=== PATIENT | female | born 1955 | race Caucasian/White ===

== ENCOUNTER 2018-10-08 11:55 | Inpatient (IN) ==
--- NOTE | 2018-10-08 13:05 | Emergency Department Note ---
Disposition Clinical Impression: Altered mental status, unspecified Qualifiers: Altered mental status type: unspecified Qualified Code(s): R41.82 - Altered mental status, unspecified UTI (urinary tract infection) Qualifiers: Urinary tract infection type: site unspecified Hematuria presence: without hematuria Qualified Code(s): N39.0 - Urinary tract infection, site not specified Disposition: Admitted As Inpatient Condition: Fair Time of Disposition: 14:54 General Adult HPI - General Chief complaint: ED Seizure Stated complaint: AMS Time Seen by Provider: 10/08/18 12:00 Source: EMS, other (home health technology services manager) Mode of arrival: EMS Limitations: altered mental status Nursing Notes Reviewed: Yes Vital Signs Reviewed: Yes - History of Present Illness HPI Narrative: 63-year-old female history of M RDD presents to the emergency department via EMS for altered mental status. She was at adult day [facility] when witnesses believes she may have experienced a seizure as she stared out into space and then had rhythmic shaking. She has a history of this 20 years ago but is not currently on any antiepileptic medication. Afterwards she was confused and nonverbal. She continues to be nonverbal here. The technology services manager of where she lives the past 15 years is present at the room and states this is not her normal self. States that earlier today around 9 o'clock when she got on the bus to the old adult day care she was sweeter than usual. She was at [facility] around 1115 with these episodes occurred. Witnesses state this may lasted 5 minutes or so. At this time patient cannot verbalize any complaints other than headache. Workup will be initiated for possible syncope versus seizure. Pain Scale: 0 - Related Data Home Medications Medication Instructions Recorded Confirmed Aspirin 81 mg PO HS 03/23/16 10/08/18 Calcium Carbonate/Vitamin D3 1 tab PO BID 03/23/16 10/08/18 [Calcium 600-Vit D3 400 Tablet] Chlorophyllin/Cochran [Chlorophyll 100 mg PO BID 03/23/16 10/08/18 20 mg Tablet] Glucosamine Sulfate Dipot Chlr 1,000 mg PO BID 03/23/16 10/08/18 [Glucosamine] Rudyard-3/Dha/Epa/Fish Oil [Fish Oil 1 cap PO DAILY 03/23/16 10/08/18 1,000 mg Softgel] Omeprazole [PriLOSEC] 40 mg PO DAILY 03/23/16 10/08/18 Simvastatin [Zocor] 20 mg PO HS 03/23/16 10/08/18 Torsemide 10 mg PO DAILY 03/23/16 10/08/18 Citalopram Hydrobromide 10 mg PO HS 10/08/18 10/08/18 [Citalopram HBr] Gabapentin [Neurontin] 900 mg PO HS 10/08/18 10/08/18 Menthol/Zinc Oxide [Calmoseptine 1 appl TP HS 10/08/18 10/08/18 Ointment Packet] Wheat Dextrin [Benefiber] 10 ml PO DAILY 10/08/18 10/08/18 Allergies Allergy/AdvReac Type Severity Reaction Status Date / Time levetiracetam [From [facility]] Allergy See Verified 10/08/18 18:25 Comments Limitations: ROS unobtainable due to patients medical condition (Patient is nonverbal) Past Medical History - Past Medical History Source: old records reviewed, obtained from family, nursing notes reviewed Medical history: Reports: other Surgical history: Reports: other Psychiatric history: Reports: other - Social History Smoking Status: Never smoker Smokeless Tobacco Status: No Alcohol use: Reports: none Drug use: Reports: none Physical Exam - General Limitations: altered mental status General appearance: alert, in no apparent distress - Head Head exam: atraumatic, normocephalic, normal inspection - Eye Eye exam: Present: normal appearance, PERRL, EOMI - ENT ENT exam: normal exam, normal oropharynx, mucous membranes moist - Neck Neck exam: Present: normal inspection, full ROM, trachea midline - Chest Chest inspection: Present: normal inspection, symmetric chest wall rise - Respiratory Respiratory exam: Present: normal lung sounds bilaterally. Absent: respiratory distress, wheezes - Cardiovascular Cardiovascular exam: Present: regular rate, normal rhythm, normal heart sounds - Expanded Cardiovascular Exam Peripheral pulses: 2+: radial (R), radial (L) - Abdominal Exam Abdominal exam: Present: soft (Obese), Non-Tender, normal bowel sounds. Absent: tenderness, distention, guarding, rebound, rigidity - Extremities Exam Extremities exam: Present: normal inspection. Absent: tenderness, pedal edema - Back Exam Back exam: Present: normal inspection, full ROM. Absent: tenderness - Neurological Exam Neurological exam: Present: alert - Psychiatric Psychiatric exam: Present: normal affect, normal mood - Skin Skin exam: Present: warm, dry, intact, normal color. Absent: rash, cyanosis, diaphoresis Course Course Narrative: Patient presents for altered mental status with concern for first-time seizure. She is nonverbal which is not her normal self. Will obtain CT scan and further evaluation. - Reevaluation(s) Reevaluation #1: After the patient returns from CT scan she is now more verbal and acting closer to herself. This was witnessed by myself nursing staff as well as her electric range assembler. Awaiting further evaluation and laboratory workup. Time: 13:06 Reevaluation #2: [place] for labs shows a clear urinary tract infection. Patient is back to baseline she is laughing interactive and appearing her normal self. At this time unclear of etiology of today's events. Concern for possible syncope versus seizure. Now that she is at baseline she does war admission for observation and further evaluation. Patient as well as caregiver is agreeable to this plan. - Consultations Consultation #1: Spoke with on-call hospitalist Dr. June, [place] to admit for AMS and UTI. No further orders at this time Vital Signs Temperature 97 F L 10/08/18 11:58 Pulse Rate 62 10/08/18 11:58 Respiratory Rate 14 10/08/18 11:58 Blood Pressure 127/98 10/08/18 11:58 O2 Sat by Pulse Oximetry 97 10/08/18 11:58 Temperature 97 F L 10/08/18 11:58 Pulse Rate 62 10/08/18 11:58 Respiratory Rate 14 10/08/18 11:58 Blood Pressure 126/110 10/08/18 13:24 O2 Sat by Pulse Oximetry 97 10/08/18 11:58 Oxygen Delivery Oxygen Delivery Room Air Medical Decision Making - MDM Narrative Medical decision making narrative: Patient was discussed with my attending physician who agrees with ED management and final disposition. They independently evaluated the patient. Please refer to their attestation to this encounter for additional information. This note was generated by [employer] voice recognition software and as a result grammatical or spelling errors may occur using this program. - Medical Records Medical records reviewed: Yes I reviewed the patient's medical records. - Lab Data Lab results reviewed: Yes I reviewed the patient's lab results. Result diagrams: 10/08/18 12:53 10/08/18 12:53 Lab Results 10/08/18 10/08/18 10/08/18 Range/Units 12:53 12:53 12:53 WBC 5.3 (4.3-11.1) K/mcL RBC 4.37 (3.82-4.97) M/mcL Hgb 14.2 (11.5-15.4) g/dL Hct 41.9 (35.3-44.9) % MCV 95.9 (83.0-100.0) fL MCH 32.5 (28.0-33.3) pg MCHC 33.9 (31.6-35.5) g/dL RDW 12.4 (11.5-14.5) % Plt Count 248 (140-400) K/mcL MPV 9.9 (9.4-12.4) fL Immature Gran % 0.2 (0-4) % Seg Neutrophils % 43.3 % Lymphocytes % 39.4 % Monocytes % 13.5 % Eosinophils % 2.5 % Basophils % 1.1 % Neutrophils # 2.3 (1.6-8.9) K/mcL Lymphocytes # 2.1 (0.6-4.6) K/mcL Monocytes # 0.7 (0.0-1.3) K/mcL Eosinophils # 0.1 (0.0-0.6) K/mcL Basophils # 0.1 (0.0-0.2) K/mcL APTT 34.2 (26.0-36.0) Seconds VBG pH (7.32-7.42) pH Units VBG pCO2 (41-51) mmHg VBG pO2 (25-50) mmHg VBG HCO3 (21-27) mEq/L Sodium 138 (136-145) mEq/L Potassium 4.1 (3.5-5.1) mEq/L Chloride 105 (98-107) mEq/L Carbon Dioxide 28 (23-29) mEq/L BUN 15 (8-23) mg/dL Creatinine 0.64 (0.60-1.20) mg/dL Est GFR ( Amer) > 60 (> 60) Est GFR (Non-Af Amer) > 60 (> 60) BUN/Creatinine Ratio 23 (6-26) Glucose 79 (70-105) mg/dL Calculated Osmolality 286 (280-300) Lactic Acid (0.5-2.2) mmol/L Calcium 9.4 (8.6-10.3) mg/dL Magnesium 2.2 (1.6-2.6) mg/dL Total Bilirubin 0.4 (0.3-1.0) mg/dL Direct Bilirubin 0.1 (0.0-0.2) mg/dL Indirect Bilirubin 0.3 (0.0-1.2) mg/dL AST 51 H (13-39) Units/L ALT 38 (7-52) Units/L Alkaline Phosphatase 77 (34-104) Units/L Ammonia (16-53) mcmol/L Troponin I (< 0.04) ng/mL Serum Total Protein 7.7 (6.4-8.9) g/dL Albumin 3.7 (3.5-5.7) g/dL Globulin 4.0 H (2.4-3.5) g/dL Albumin/Globulin Ratio 0.9 L (1.1-2.2) Lipase 28 (11-82) Units/L Urine Color (Yellow) Urine Clarity (Clear) Urine pH (5.0-8.0) pH Units Ur Specific [place] (1.010-1.025) Urine Protein (Neg-Trace) mg/dL Urine Glucose (UA) (Normal) mg/dL Urine Ketones (Negative) mg/dL Urine Blood (Negative) Urine Nitrite (Negative) Urine Bilirubin (Negative) Urine Urobilinogen (Normal) mg/dL Ur Leukocyte Esterase (Negative) Urine Microscopic RBC (0-3) per hpf Urine Microscopic WBC (0-3) per hpf Ur Squamous Epith Cells (None-Few) per lpf Urine Bacteria (None-Few) per hpf Hyaline Casts (None-Few) per lpf Ur Culture Indicated? (NO) 10/08/18 10/08/18 10/08/18 Range/Units 12:53 12:53 12:53 WBC (4.3-11.1) K/mcL RBC (3.82-4.97) M/mcL Hgb (11.5-15.4) g/dL Hct (35.3-44.9) % MCV (83.0-100.0) fL MCH (28.0-33.3) pg MCHC (31.6-35.5) g/dL RDW (11.5-14.5) % Plt Count (140-400) K/mcL MPV (9.4-12.4) fL Immature Gran % (0-4) % Seg Neutrophils % % Lymphocytes % % Monocytes % % Eosinophils % % Basophils % % Neutrophils # (1.6-8.9) K/mcL Lymphocytes # (0.6-4.6) K/mcL Monocytes # (0.0-1.3) K/mcL Eosinophils # (0.0-0.6) K/mcL Basophils # (0.0-0.2) K/mcL APTT (26.0-36.0) Seconds VBG pH (7.32-7.42) pH Units VBG pCO2 (41-51) mmHg VBG pO2 (25-50) mmHg VBG HCO3 (21-27) mEq/L Sodium (136-145) mEq/L Potassium (3.5-5.1) mEq/L Chloride (98-107) mEq/L Carbon Dioxide (23-29) mEq/L BUN (8-23) mg/dL Creatinine (0.60-1.20) mg/dL Est GFR ( Amer) (> 60) Est GFR (Non-Af Amer) (> 60) BUN/Creatinine Ratio (6-26) Glucose (70-105) mg/dL Calculated Osmolality (280-300) Lactic Acid 1.3 (0.5-2.2) mmol/L Calcium (8.6-10.3) mg/dL Magnesium (1.6-2.6) mg/dL Total Bilirubin (0.3-1.0) mg/dL Direct Bilirubin (0.0-0.2) mg/dL Indirect Bilirubin (0.0-1.2) mg/dL AST (13-39) Units/L ALT (7-52) Units/L Alkaline Phosphatase (34-104) Units/L Ammonia 43 (16-53) mcmol/L Troponin I < 0.03 (< 0.04) ng/mL Serum Total Protein (6.4-8.9) g/dL Albumin (3.5-5.7) g/dL Globulin (2.4-3.5) g/dL Albumin/Globulin Ratio (1.1-2.2) Lipase (11-82) Units/L Urine Color (Yellow) Urine Clarity (Clear) Urine pH (5.0-8.0) pH Units Ur Specific [place] (1.010-1.025) Urine Protein (Neg-Trace) mg/dL Urine Glucose (UA) (Normal) mg/dL Urine Ketones (Negative) mg/dL Urine Blood (Negative) Urine Nitrite (Negative) Urine Bilirubin (Negative) Urine Urobilinogen (Normal) mg/dL Ur Leukocyte Esterase (Negative) Urine Microscopic RBC (0-3) per hpf Urine Microscopic WBC (0-3) per hpf Ur Squamous Epith Cells (None-Few) per lpf Urine Bacteria (None-Few) per hpf Hyaline Casts (None-Few) per lpf Ur Culture Indicated? (NO) 10/08/18 10/08/18 Range/Units 13:10 13:44 WBC (4.3-11.1) K/mcL RBC (3.82-4.97) M/mcL Hgb (11.5-15.4) g/dL Hct (35.3-44.9) % MCV (83.0-100.0) fL MCH (28.0-33.3) pg MCHC (31.6-35.5) g/dL RDW (11.5-14.5) % Plt Count (140-400) K/mcL MPV (9.4-12.4) fL Immature Gran % (0-4) % Seg Neutrophils % % Lymphocytes % % Monocytes % % Eosinophils % % Basophils % % Neutrophils # (1.6-8.9) K/mcL Lymphocytes # (0.6-4.6) K/mcL Monocytes # (0.0-1.3) K/mcL Eosinophils # (0.0-0.6) K/mcL Basophils # (0.0-0.2) K/mcL APTT (26.0-36.0) Seconds VBG pH 7.38 (7.32-7.42) pH Units VBG pCO2 42 (41-51) mmHg VBG pO2 109 H (25-50) mmHg VBG HCO3 25 (21-27) mEq/L Sodium (136-145) mEq/L Potassium (3.5-5.1) mEq/L Chloride (98-107) mEq/L Carbon Dioxide (23-29) mEq/L BUN (8-23) mg/dL Creatinine (0.60-1.20) mg/dL Est GFR ( Amer) (> 60) Est GFR (Non-Af Amer) (> 60) BUN/Creatinine Ratio (6-26) Glucose (70-105) mg/dL Calculated Osmolality (280-300) Lactic Acid (0.5-2.2) mmol/L Calcium (8.6-10.3) mg/dL Magnesium (1.6-2.6) mg/dL Total Bilirubin (0.3-1.0) mg/dL Direct Bilirubin (0.0-0.2) mg/dL Indirect Bilirubin (0.0-1.2) mg/dL AST (13-39) Units/L ALT (7-52) Units/L Alkaline Phosphatase (34-104) Units/L Ammonia (16-53) mcmol/L Troponin I (< 0.04) ng/mL Serum Total Protein (6.4-8.9) g/dL Albumin (3.5-5.7) g/dL Globulin (2.4-3.5) g/dL Albumin/Globulin Ratio (1.1-2.2) Lipase (11-82) Units/L Urine Color Yellow (Yellow) Urine Clarity Cloudy A (Clear) Urine pH 5.5 (5.0-8.0) pH Units Ur Specific [place] 1.020 (1.010-1.025) Urine Protein Negative (Neg-Trace) mg/dL Urine Glucose (UA) Normal (Normal) mg/dL Urine Ketones Negative (Negative) mg/dL Urine Blood Negative (Negative) Urine Nitrite Positive A (Negative) Urine Bilirubin Negative (Negative) Urine Urobilinogen Normal (Normal) mg/dL Ur Leukocyte Esterase Moderate H (Negative) Urine Microscopic RBC 0-3 (0-3) per hpf Urine Microscopic WBC 50-100 H (0-3) per hpf Ur Squamous Epith Cells Few (None-Few) per lpf Urine Bacteria Many H (None-Few) per hpf Hyaline Casts Few (None-Few) per lpf Ur Culture Indicated? YES A (NO) - Radiology Data Radiology results reviewed: Yes I reviewed the patient's radiology results. Chest X-Ray 10/08/18 12:09 IMPRESSION: 1. Technically limited exam because of expiratory phase of respiration. 2. Probable small right pleural effusion. Focal pneumonitis is a consideration as well. 3. Predominantly bilateral parahilar vascular crowding underaeration. Follow-up full inspiration PA and lateral chest may be useful for better characterization of pulmonary findings. D/ / Hector Rodriguez / Hector Rodriguez Interpreting Provider: Hector Rodriguez Head CT 10/08/18 12:09 IMPRESSION: No acute intracranial abnormality. D/ / Davis Calderon MD / Davis Calderon MD Interpreting Provider: Davis Calderon MD Knee X-Ray 10/08/18 12:40 IMPRESSION: Moderate tricompartmental degenerative changes with a 17 mm loose body anteriorly. No acute osseous abnormality. D/ / 10/08/2018 13:32:34 Pamela Boggs MD / rahat Interpreting Provider: Pamela Boggs MD Attestation Statement - Attestation Attestation: I have seen this patient with the resident physician, I have personally evaluated this patient. I had reviewed the chart and document dictation by the resident physician and aM in agreement with the information documented by the resident physician. Please see documentation by the resident physician for complete chart including past medical history, family medical history, review of systems, current history and physical and laboratory and imaging studies. I was present for all procedures, provided direct supervision for all procedu res, was present for the entirety of all procedures and provided direct guidance during the procedures. Please see documentation by the resident physician for any procedures performed. I have reviewed all interpretations of EKGs, and reviewed all EKGs performed on patient's as well. I have also reviewed reports of imaging as provided by radiology.
[2018-10-08 13:24] LABS: Basophils # 0.1 K/mcL (0.0-0.2); Basophils % 1.1 %; Eosinophils # 0.1 K/mcL (0.0-0.6); Eosinophils % 2.5 %; Hematocrit 41.9 % (35.3-44.9); Hemoglobin 14.2 g/dL (11.5-15.4); Immature Granulocytes % 0.2 % (0-4); Lymphocytes # 2.1 K/mcL (0.6-4.6); Lymphocytes % 39.4 %; Mean Corpuscular HGB Conc 33.9 g/dL (31.6-35.5); Mean Corpuscular Hemoglobin 32.5 pg (28.0-33.3); Mean Corpuscular Volume 95.9 fL (83.0-100.0); Mean Platelet Volume 9.9 fL (9.4-12.4); Monocytes # 0.7 K/mcL (0.0-1.3); Monocytes % 13.5 %; Neutrophils # 2.3 K/mcL (1.6-8.9); Platelet Count 248 K/mcL (140-400); Red Blood Count 4.37 M/mcL (3.82-4.97); Red Cell Distribution Width 12.4 % (11.5-14.5); Segmented Neutrophils % 43.3 %; White Blood Count 5.3 K/mcL (4.3-11.1)
[2018-10-08 13:31] LABS: Bilirubin,Urine Negative (Negative); Blood,Urine Negative (Negative); Clarity,Urine Cloudy (Clear); Color,Urine Yellow (Yellow); Glucose,Urine (UA) Normal (Normal); Ketones,Urine Negative (Negative); Leukocyte Esterase,Urine Moderate (Negative); Nitrite,Urine Positive (Negative); PH,Urine 5.5 pH Units (5.0-8.0); Protein,Urine Negative (Neg-Trace); Urobilinogen,Urine Normal (Normal)
[2018-10-08 13:34] LABS: Bacteria,Urine Many per hpf (None-Few); Hyaline Casts,Urine Few per lpf (None-Few); RBC,Urine 0-3 per hpf (0-3); Squamous Epithelial Cell,Urine Few per lpf (None-Few); WBC,Urine 50-100 per hpf (0-3)
[2018-10-08 13:34] LABS: Alanine Aminotransferase 38 Units/L (7-52); Albumin 3.7 g/dL (3.5-5.7); Albumin/Globulin Ratio 0.9 (1.1-2.2); Alkaline Phosphatase 77 Units/L (34-104); Aspartate Amino Transferase 51 Units/L (13-39); BUN/Creatinine Ratio 23 (6-26); Bilirubin,Direct 0.1 mg/dL (0.0-0.2); Bilirubin,Indirect 0.3 mg/dL (0.0-1.2); Bilirubin,Total 0.4 mg/dL (0.3-1.0); Blood Urea Nitrogen 15 mg/dL (8-23); Calcium 9.4 mg/dL (8.6-10.3); Carbon Dioxide 28 mEq/L (23-29); Chloride 105 mEq/L (98-107); Glucose 79 mg/dL (70-105); Lipase 28 Units/L (11-82); Magnesium 2.2 mg/dL (1.6-2.6); Osmolality,Calculated 286 (280-300); Potassium 4.1 mEq/L (3.5-5.1); Sodium 138 mEq/L (136-145); Total Protein 7.7 g/dL (6.4-8.9); eGFR For African Americans > 60 (> 60); eGFR For Non-African Americans > 60 (> 60)
[2018-10-08 13:47] LABS: VBG HCO3 25 mEq/L (21-27); VBG PCO2 42 mmHg (41-51); VBG PH 7.38 pH Units (7.32-7.42); VBG PO2 109 mmHg (25-50)
[2018-10-08] MEDS ORDERED: cefTRIAXone 1,000 MG in 0.9 % Sodium Chloride Mini Bag 100 ML IVPB ONE (13:48)
--- NOTE | 2018-10-08 14:26 | Emergency Department Note ---
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) Mode of arrival: EMS Limitations: altered mental status - History of Present Illness Pain Scale: 0 - Related Data Home Medications Medication Instructions Recorded Confirmed Aspirin 81 mg PO DAILY 03/23/16 03/23/16 Calcium Carbonate/Vitamin D3 1 each PO BID 03/23/16 03/23/16 [Calcium 600-Vit D3 400 Tablet] Chlorophyllin/[place] [Chlorophyll 100 mg PO BID 03/23/16 03/23/16 20 mg Tablet] Gabapentin 900 mg PO DAILY 03/23/16 03/23/16 Glucosamine Sulfate Dipot Chlr 1,000 mg PO BID 03/23/16 03/23/16 [Glucosamine] [place]-3/Dha/Epa/Fish Oil [Fish Oil 1 each PO DAILY 03/23/16 03/23/16 1,000 mg Softgel] Omeprazole [PriLOSEC] 40 mg PO DAILY 03/23/16 03/23/16 Simvastatin [Zocor] 20 mg PO DAILY 03/23/16 03/23/16 Torsemide 10 mg PO DAILY 03/23/16 03/23/16 Previous Rx's Medication Instructions Recorded Azithromycin [Zithromax] 0 tab PO DAILY #6 tablet 11/02/16 HYDROcodone/Acet 5/325 mg [[place] 1 tab PO Q6H PRN #10 tab 04/21/17 5-325 mg] Allergies Allergy/AdvReac Type Severity Reaction Status Date / Time levetiracetam [From Keppra] Allergy See Verified 04/09/18 21:12 Comments Past Medical History - Past Medical History Medical history: Reports: other Surgical history: Reports: other Psychiatric history: Reports: other - Social History Smoking Status: Never smoker Smokeless Tobacco Status: No Alcohol use: Reports: none Drug use: Reports: none Physical Exam - General Limitations: altered mental status General appearance: alert, in no apparent distress Course Vital Signs Temperature 97 F L 10/08/18 11:58 Pulse Rate 62 10/08/18 11:58 Respiratory Rate 14 10/08/18 11:58 Blood Pressure 127/98 10/08/18 11:58 O2 Sat by Pulse Oximetry 97 10/08/18 11:58 Temperature 97 F L 10/08/18 11:58 Pulse Rate 62 10/08/18 11:58 Respiratory Rate 14 10/08/18 11:58 Blood Pressure 126/110 10/08/18 13:24 O2 Sat by Pulse Oximetry 97 10/08/18 11:58 Oxygen Delivery Oxygen Delivery Room Air Medical Decision Making - Lab Data Result diagrams: 10/08/18 12:53 10/08/18 12:53 Lab Results 10/08/18 10/08/18 10/08/18 Range/Units 12:53 12:53 12:53 WBC 5.3 (4.3-11.1) K/mcL RBC 4.37 (3.82-4.97) M/mcL Hgb 14.2 (11.5-15.4) g/dL Hct 41.9 (35.3-44.9) % MCV 95.9 (83.0-100.0) fL MCH 32.5 (28.0-33.3) pg MCHC 33.9 (31.6-35.5) g/dL RDW 12.4 (11.5-14.5) % Plt Count 248 (140-400) K/mcL MPV 9.9 (9.4-12.4) fL Immature Gran % 0.2 (0-4) % Seg Neutrophils % 43.3 % Lymphocytes % 39.4 % Monocytes % 13.5 % Eosinophils % 2.5 % Basophils % 1.1 % Neutrophils # 2.3 (1.6-8.9) K/mcL Lymphocytes # 2.1 (0.6-4.6) K/mcL Monocytes # 0.7 (0.0-1.3) K/mcL Eosinophils # 0.1 (0.0-0.6) K/mcL Basophils # 0.1 (0.0-0.2) K/mcL APTT 34.2 (26.0-36.0) Seconds VBG pH (7.32-7.42) pH Units VBG pCO2 (41-51) mmHg VBG pO2 (25-50) mmHg VBG HCO3 (21-27) mEq/L Sodium 138 (136-145) mEq/L Potassium 4.1 (3.5-5.1) mEq/L Chloride 105 (98-107) mEq/L Carbon Dioxide 28 (23-29) mEq/L BUN 15 (8-23) mg/dL Creatinine 0.64 (0.60-1.20) mg/dL Est GFR ( Amer) > 60 (> 60) Est GFR (Non-Af Amer) > 60 (> 60) BUN/Creatinine Ratio 23 (6-26) Glucose 79 (70-105) mg/dL Calculated Osmolality 286 (280-300) Lactic Acid (0.5-2.2) mmol/L Calcium 9.4 (8.6-10.3) mg/dL Magnesium 2.2 (1.6-2.6) mg/dL Total Bilirubin 0.4 (0.3-1.0) mg/dL Direct Bilirubin 0.1 (0.0-0.2) mg/dL Indirect Bilirubin 0.3 (0.0-1.2) mg/dL AST 51 H (13-39) Units/L ALT 38 (7-52) Units/L Alkaline Phosphatase 77 (34-104) Units/L Ammonia (16-53) mcmol/L Troponin I (< 0.04) ng/mL Serum Total Protein 7.7 (6.4-8.9) g/dL Albumin 3.7 (3.5-5.7) g/dL Globulin 4.0 H (2.4-3.5) g/dL Albumin/Globulin Ratio 0.9 L (1.1-2.2) Lipase 28 (11-82) Units/L Urine Color (Yellow) Urine Clarity (Clear) Urine pH (5.0-8.0) pH Units Ur Specific [place] (1.010-1.025) Urine Protein (Neg-Trace) mg/dL Urine Glucose (UA) (Normal) mg/dL Urine Ketones (Negative) mg/dL Urine Blood (Negative) Urine Nitrite (Negative) Urine Bilirubin (Negative) Urine Urobilinogen (Normal) mg/dL Ur Leukocyte Esterase (Negative) Urine Microscopic RBC (0-3) per hpf Urine Microscopic WBC (0-3) per hpf Ur Squamous Epith Cells (None-Few) per lpf Urine Bacteria (None-Few) per hpf Hyaline Casts (None-Few) per lpf Ur Culture Indicated? (NO) 10/08/18 10/08/18 10/08/18 Range/Units 12:53 12:53 12:53 WBC (4.3-11.1) K/mcL RBC (3.82-4.97) M/mcL Hgb (11.5-15.4) g/dL Hct (35.3-44.9) % MCV (83.0-100.0) fL MCH (28.0-33.3) pg MCHC (31.6-35.5) g/dL RDW (11.5-14.5) % Plt Count (140-400) K/mcL MPV (9.4-12.4) fL Immature Gran % (0-4) % Seg Neutrophils % % Lymphocytes % % Monocytes % % Eosinophils % % Basophils % % Neutrophils # (1.6-8.9) K/mcL Lymphocytes # (0.6-4.6) K/mcL Monocytes # (0.0-1.3) K/mcL Eosinophils # (0.0-0.6) K/mcL Basophils # (0.0-0.2) K/mcL APTT (26.0-36.0) Seconds VBG pH (7.32-7.42) pH Units VBG pCO2 (41-51) mmHg VBG pO2 (25-50) mmHg VBG HCO3 (21-27) mEq/L Sodium (136-145) mEq/L Potassium (3.5-5.1) mEq/L Chloride (98-107) mEq/L Carbon Dioxide (23-29) mEq/L BUN (8-23) mg/dL Creatinine (0.60-1.20) mg/dL Est GFR ( Amer) (> 60) Est GFR (Non-Af Amer) (> 60) BUN/Creatinine Ratio (6-26) Glucose (70-105) mg/dL Calculated Osmolality (280-300) Lactic Acid 1.3 (0.5-2.2) mmol/L Calcium (8.6-10.3) mg/dL Magnesium (1.6-2.6) mg/dL Total Bilirubin (0.3-1.0) mg/dL Direct Bilirubin (0.0-0.2) mg/dL Indirect Bilirubin (0.0-1.2) mg/dL AST (13-39) Units/L ALT (7-52) Units/L Alkaline Phosphatase (34-104) Units/L Ammonia 43 (16-53) mcmol/L Troponin I < 0.03 (< 0.04) ng/mL Serum Total Protein (6.4-8.9) g/dL Albumin (3.5-5.7) g/dL Globulin (2.4-3.5) g/dL Albumin/Globulin Ratio (1.1-2.2) Lipase (11-82) Units/L Urine Color (Yellow) Urine Clarity (Clear) Urine pH (5.0-8.0) pH Units Ur Specific [place] (1.010-1.025) Urine Protein (Neg-Trace) mg/dL Urine Glucose (UA) (Normal) mg/dL Urine Ketones (Negative) mg/dL Urine Blood (Negative) Urine Nitrite (Negative) Urine Bilirubin (Negative) Urine Urobilinogen (Normal) mg/dL Ur Leukocyte Esterase (Negative) Urine Microscopic RBC (0-3) per hpf Urine Microscopic WBC (0-3) per hpf Ur Squamous Epith Cells (None-Few) per lpf Urine Bacteria (None-Few) per hpf Hyaline Casts (None-Few) per lpf Ur Culture Indicated? (NO) 10/08/18 10/08/18 Range/Units 13:10 13:44 WBC (4.3-11.1) K/mcL RBC (3.82-4.97) M/mcL Hgb (11.5-15.4) g/dL Hct (35.3-44.9) % MCV (83.0-100.0) fL MCH (28.0-33.3) pg MCHC (31.6-35.5) g/dL RDW (11.5-14.5) % Plt Count (140-400) K/mcL MPV (9.4-12.4) fL Immature Gran % (0-4) % Seg Neutrophils % % Lymphocytes % % Monocytes % % Eosinophils % % Basophils % % Neutrophils # (1.6-8.9) K/mcL Lymphocytes # (0.6-4.6) K/mcL Monocytes # (0.0-1.3) K/mcL Eosinophils # (0.0-0.6) K/mcL Basophils # (0.0-0.2) K/mcL APTT (26.0-36.0) Seconds VBG pH 7.38 (7.32-7.42) pH Units VBG pCO2 42 (41-51) mmHg VBG pO2 109 H (25-50) mmHg VBG HCO3 25 (21-27) mEq/L Sodium (136-145) mEq/L Potassium (3.5-5.1) mEq/L Chloride (98-107) mEq/L Carbon Dioxide (23-29) mEq/L BUN (8-23) mg/dL Creatinine (0.60-1.20) mg/dL Est GFR ( Amer) (> 60) Est GFR (Non-Af Amer) (> 60) BUN/Creatinine Ratio (6-26) Glucose (70-105) mg/dL Calculated Osmolality (280-300) Lactic Acid (0.5-2.2) mmol/L Calcium (8.6-10.3) mg/dL Magnesium (1.6-2.6) mg/dL Total Bilirubin (0.3-1.0) mg/dL Direct Bilirubin (0.0-0.2) mg/dL Indirect Bilirubin (0.0-1.2) mg/dL AST (13-39) Units/L ALT (7-52) Units/L Alkaline Phosphatase (34-104) Units/L Ammonia (16-53) mcmol/L Troponin I (< 0.04) ng/mL Serum Total Protein (6.4-8.9) g/dL Albumin (3.5-5.7) g/dL Globulin (2.4-3.5) g/dL Albumin/Globulin Ratio (1.1-2.2) Lipase (11-82) Units/L Urine Color Yellow (Yellow) Urine Clarity Cloudy A (Clear) Urine pH 5.5 (5.0-8.0) pH Units Ur Specific [place] 1.020 (1.010-1.025) Urine Protein Negative (Neg-Trace) mg/dL Urine Glucose (UA) Normal (Normal) mg/dL Urine Ketones Negative (Negative) mg/dL Urine Blood Negative (Negative) Urine Nitrite Positive A (Negative) Urine Bilirubin Negative (Negative) Urine Urobilinogen Normal (Normal) mg/dL Ur Leukocyte Esterase Moderate H (Negative) Urine Microscopic RBC 0-3 (0-3) per hpf Urine Microscopic WBC 50-100 H (0-3) per hpf Ur Squamous Epith Cells Few (None-Few) per lpf Urine Bacteria Many H (None-Few) per hpf Hyaline Casts Few (None-Few) per lpf Ur Culture Indicated? YES A (NO) Attestation Statement - Attestation Attestation: I have seen this patient with the resident physician, I have personally evaluated this patient. I had reviewed the chart and document dictation by the resident physician and aM in agreement with the information documented by the resident physician. Please see documentation by the resident physician for complete chart including past medical history, family medical history, review of systems, current history and physical and laboratory and imaging studies. I was present for all procedures, provided direct supervision for all procedures, was present for the entirety of all procedures and provided direct guidance during the procedures. Please see documentation by the resident physician for any procedures performed. I have reviewed all interpretations of EKGs, and reviewed all EKGs performed on patient's as well. I have also reviewed reports of imaging as provided by radiology. Patient presented emergency department with chief complaint of altered mental status. Patient was at adult daycare, when she had an episode that looked like potentially had a seizure, they witnessed some shaking activity of her upper extremities, and then was out of it, and was not talking or at her mental baseline, the patient does not have a documented history of seizures per her medication list, or past medical history that presented with the patient, I was evaluating the patient, when a cow tender who knows this patient very well who has known her for over 15 years arrives states that this is definitely not her baseline she is typically very happy, she is able to communicate and talk although she is very difficult to understand sometimes, she states that she has known her for many years and can communicate with her and she definitively talks and her not talking is very unusual. She states that when she arrived the patient was very out of it was not talking to her and was not doing very much. She did not obviously bite her tongue but does not have teeth, she is chronically incontinent there is no known whether or not she was incontinent during this episode. It is unclear as to exactly how long this lasted. The cow tender reports that the patient has a distant past history of seizures but has not been on seizure medication for over 20 years and has had no seizures since she has known her for 15 years. The patient has had no recent illnesses, and therefore otherwise she is really healthy globally speaking. She has had no fevers no chills no cough no sputum production no nausea no vomiting no diarrhea no recent fevers no recent trauma. Upon presentation, the patient is slightly lethargic, she does open her eyes, and will engage with her cow tender, but does not talk, she will nod her head, she endorses a headache and points to her head where she has pain. She seems to deny any other symptoms of feeling sicker short of breath or chest pain or abdominal pain, but is a poor historian at this time. She has pupils that are 3 mm and reactive bilaterally. Oropharynx does not reveal any acute findings, no evidence of tongue biting, however the patient is edentulous. Lungs are clear heart is regular abdomen is obese but nontender. She will follow simple commands, she moves all 4 extremities to command wiggles her toes bilaterally squeezes my hand bilaterally, no obvious lateralizing findings. Skin is warm dry without rash or petechiae or jaundice. Head CT was immediately performed, which as interpreted by radiology showed no acute findings. A fingerstick was performed prehospital which was within acceptable limits and was rechecked here at 79. Basic laboratory studies were all within acceptable limits apart from evidence for a UTI with positive nitrite positive Estrace positive white blood cells and positive bacteria with no significant squamous cells. This was sent for a culture patient was given IV Rocephin, she had no further seizure-like activity here in the ER and in fact completely returned back to her mental baseline she is smiling and laughing talking asking for food, she was able eat and drink. It is unclear as to the exact etiology of this patient's presenting symptoms, certainly potential for seizure, also possible syncopal event, with mental status changes, and she does have evidence for UTI secondary to combination thereof, with the patient also having some underlying delay, being in a longterm and having UTI she will be admitted to the hospital for further evaluation and management.
--- NOTE | 2018-10-08 17:16 | Internal Med History&Physical ---
Date of Encounter: 10/08/18 Time of Encounter: 17:00 Internal Medicine - H&P: HPI Chief complaint: Confusion Admitted From: Home Plans for Post Hospital Care: Home History of present illness: Patient is a 63-year-old female with past medical history significant for developmental delay and seizures approximately 15 years ago who presents from adult daycare center due to seizure-like movements and altered mental status. Apparently while patient was at adult daycare she was described as having upper extremity shaking with confusion so patient was brought into the hospital for further evaluation. I discussed this directly with the ER physician who noted that patient seemed to have had a post ictal period where her confusion gradually improved. In the ER, CT of the head was negative for any acute findings but urinalysis positive for pyuria and patient with a one dose of IV ceftriaxone. She will be admitted to the medical surgical floor for seizure-like activity and urinary tract infection. Past Med Surg Social Fam HX - Past Medical History Medical history: other Additional medical history: cerebral palsy Psychiatric history: other - Past Surgical History Surgical History: other Additional surgical history: back surgery. - Social History Smoking Status: Never smoker Smokeless Tobacco Status: No Alcohol use: none Drug use: none Internal Medicine - H&P: Meds Aspirin 81 mg PO DAILY 03/23/16 [History] Calcium Carbonate/Vitamin D3 [Calcium 600-Vit D3 400 Tablet] 1 each PO BID 03/23/16 [History] Chlorophyllin/[place] [Chlorophyll 20 mg Tablet] 100 mg PO BID 03/23/16 [History] Gabapentin 900 mg PO DAILY 03/23/16 [History] Glucosamine Sulfate Dipot Chlr [Glucosamine] 1,000 mg PO BID 03/23/16 [History] [place]-3/Dha/Epa/Fish Oil [Fish Oil 1,000 mg Softgel] 1 each PO DAILY 03/23/16 [History] Omeprazole [PriLOSEC] 40 mg PO DAILY 03/23/16 [History] Simvastatin [Zocor] 20 mg PO DAILY 03/23/16 [History] Torsemide 10 mg PO DAILY 03/23/16 [History] Azithromycin [Zithromax] 0 tab PO DAILY #6 tablet 11/02/16 [Rx] HYDROcodone/Acet 5/325 mg [[place] 5-325 mg] 1 tab PO Q6H PRN #10 tab 04/21/17 [Rx] Allergy/AdvReac Type Severity Reaction Status Date / Time levetiracetam [From [facility]] Allergy See Verified 04/09/18 21:12 Comments ROS unobtainable: due to mental status All Systems PM: A 10-system review of systems was performed and is negative for pertinent findings except as documented above in the HPI. - Constitutional Vitals: Temp Pulse Resp BP Pulse Ox 97 F L 69 19 129/83 98 10/08/18 11:58 10/08/18 14:57 10/08/18 14:57 10/08/18 14:57 10/08/18 14:57 Exam: Gen.: Nonacute distress ENT: Mucosal membranes moist Respiratory: Lungs are clear to auscultation bilaterally without any wheezing rhonchi or rales Cardiovascular: Normal S1 and S2 regular rate rhythm no murmurs rubs or gallops Abdomen: Soft, nontender and nondistended with positive bowel sounds Extremities: No lower extremity edema Skin: Normal color Internal Med - H&P Results - Labs CBC & Chem 7: 10/08/18 12:53 10/08/18 12:53 Labs: Short CBC 10/08/18 Range/Units 12:53 WBC 5.3 (4.3-11.1) K/mcL Hgb 14.2 (11.5-15.4) g/dL Hct 41.9 (35.3-44.9) % Plt Count 248 (140-400) K/mcL Neutrophils # 2.3 (1.6-8.9) K/mcL BMP 10/08/18 12:53 Sodium 138 Potassium 4.1 Chloride 105 Carbon Dioxide 28 BUN 15 Creatinine 0.64 Glucose 79 Calcium 9.4 Cardiac Enzymes 10/08/18 Range/Units 12:53 Troponin I < 0.03 (< 0.04) ng/mL Liver Function 10/08/18 Range/Units 12:53 Total Bilirubin 0.4 (0.3-1.0) mg/dL Direct Bilirubin 0.1 (0.0-0.2) mg/dL AST 51 H (13-39) Units/L ALT 38 (7-52) Units/L Alkaline Phosphatase 77 (34-104) Units/L Albumin 3.7 (3.5-5.7) g/dL Urine 10/08/18 Range/Units 13:10 Urine Color Yellow (Yellow) Urine Clarity Cloudy A (Clear) Urine pH 5.5 (5.0-8.0) pH Units Ur Specific [place] 1.020 (1.010-1.025) Urine Protein Negative (Neg-Trace) mg/dL Urine Glucose (UA) Normal (Normal) mg/dL - ABG Interpretation ABG results: 10/08/18 13:44 VBG pH 7.38 VBG pCO2 42 VBG pO2 109 H VBG HCO3 25 - Impressions ITS Impressions Chest X-Ray 10/08/18 12:09 IMPRESSION: 1. Technically limited exam because of expiratory phase of respiration. 2. Probable small right pleural effusion. Focal pneumonitis is a consideration as well. 3. Predominantly bilateral parahilar vascular crowding underaeration. Follow-up full inspiration PA and lateral chest may be useful for better characterization of pulmonary findings. D/ / Hector Rodriguez / Hector Rodriguez Interpreting Provider: Hector Rodriguez Head CT 10/08/18 12:09 IMPRESSION: No acute intracranial abnormality. D/ / Davis Calderon MD / Davis Calderon MD Interpreting Provider: Davis Calderon MD Knee X-Ray 10/08/18 12:40 IMPRESSION: Moderate tricompartmental degenerative changes with a 17 mm loose body anteriorly. No acute osseous abnormality. D/ / 10/08/2018 13:32:34 Pamela Boggs MD / rahat Interpreting Provider: Pamela Boggs MD - Assessment and Plan (1) Witnessed seizure-like activity Current Visit: Yes Status: Acute Assessment and plan: Apparently while patient was at adult daycare she was described as having upper extremity shaking with confusion so patient was brought into the hospital for further evaluation. I discussed this directly with the ER physician who noted that patient seemed to have had a post ictal period where her confusion gradually improved. In the ER, CT of the head was negative for any acute findings Will consult neurology and appreciate recommendations (2) Altered mental status, unspecified Current Visit: Yes Status: Acute Assessment and plan: Patient per caregiver not at baseline mental status and had been noted to have confusion. CT of the head negative as above Urinalysis positive and suspect UTI Treatment as below Qualifiers: Altered mental status type: unspecified Qualified Code(s): R41.82 - Altered mental status, unspecified (3) UTI (urinary tract infection) Current Visit: Yes Status: Acute Assessment and plan: Urinalysis positive for pyuria; cultures pending Will continue IV ceftriaxone started in the ER Qualifiers: Urinary tract infection type: site unspecified Hematuria presence: without hematuria Qualified Code(s): N39.0 - Urinary tract infection, site not specified (4) DVT prophylaxis Current Visit: Yes Status: Acute Assessment and plan: Heparin subcutaneous - Time Spent With Patient Total time spent is greater than 50% in coordination of care (as documented) at patient's floor/unit and/or counseling patient:
[2018-10-08] MEDS ORDERED: Naloxone 0.4 MG/ML INJ IVP PRN (17:19)
[2018-10-08] MEDS: *HR* Heparin 5,000 UNIT/ML VIAL SQ SCH (21:09)
[2018-10-09] MEDS: *HR* Heparin 5,000 UNIT/ML VIAL SQ SCH ×3 (05:27→21:08)
[2018-10-09 05:46] LABS: Basophils % 0.8 %; Eosinophils # 0.1 K/mcL (0.0-0.6); Eosinophils % 2.2 %; Hematocrit 37.8 % (35.3-44.9); Hemoglobin 12.9 g/dL (11.5-15.4); Immature Granulocytes % 0.2 % (0-4); Lymphocytes % 39.4 %; Mean Corpuscular HGB Conc 34.1 g/dL (31.6-35.5); Mean Corpuscular Volume 96.7 fL (83.0-100.0); Mean Platelet Volume 9.7 fL (9.4-12.4); Monocytes # 0.5 K/mcL (0.0-1.3); Monocytes % 10.5 %; Neutrophils # 2.4 K/mcL (1.6-8.9); Platelet Count 200 K/mcL (140-400); Red Blood Count 3.91 M/mcL (3.82-4.97); Red Cell Distribution Width 12.3 % (11.5-14.5); Segmented Neutrophils % 46.9 %; White Blood Count 5.1 K/mcL (4.3-11.1)
[2018-10-09 06:00] LABS: BUN/Creatinine Ratio 19 (6-26); Blood Urea Nitrogen 12 mg/dL (8-23); Calcium 8.7 mg/dL (8.6-10.3); Carbon Dioxide 27 mEq/L (23-29); Chloride 105 mEq/L (98-107); Glucose 90 mg/dL (70-105); Osmolality,Calculated 285 (280-300); Potassium 3.9 mEq/L (3.5-5.1); Sodium 138 mEq/L (136-145); eGFR For African Americans > 60 (> 60); eGFR For Non-African Americans > 60 (> 60)
--- NOTE | 2018-10-09 10:52 | Neurology - Consult Note ---
Date of Encounter: 10/09/18 Time of Encounter: 10:50 Assessment and Plan (1) Witnessed seizure-like activity Current Visit: Yes Status: Acute Witnessed seizure like activity at adult day [facility] leading to AMS Head CT found no acute intracranial abnormlity Etiology uncertain at this time, seizure vs syncope vs UTI Remote history of seizures 15-20 years ago not currently on medications EEG resulted no epileptic like activity Patient appears to be at baseline Plan: EEG no epileptic activity noted Continue UTI treatment patient appears to be at baseline continue to monitor patient patient may be at increased risk of developing seizures. however,a t this time we do not believe an MRI or antiepileptic treatment is warranted due to her current clinical status and remote history of seizure. If her condition deteriorates consider MRI or antiepileptic treatment (2) Altered mental status, unspecified Current Visit: Yes Status: Acute as above Qualifiers: Altered mental status type: unspecified Qualified Code(s): R41.82 - Altered mental status, unspecified History of Present Illness HPI: Ms. Smith is a 63 year old female with past medical history significant for developmental delay and seizures 15-20 years ago presents to from an adult daycare center due to seizure-like movements and altered mental status. History is obtained from chart review as patient is a poor historian and was present during exam. [facility] and she had upper extremity shaking associated with confusion so she is brought to the hospital for further evaluation. It appeared the patient was in a postictal period at the ED but her confusion began to improve. Per ER report states that the episodes lasted around 5 minutes. It appeared the patient began to be more at her baseline and was admitted for observation. Also the patient had an acute UTI and started with IV ceftriaxone. Today patient appears to be doing well. She is talkative and laughing. She is cooperative with exam. However, due to developmental delay mental status was difficult to assess. Past Med Surg Social Fam HX - Past Medical History Medical history: other Additional medical history: cerebral palsy Psychiatric history: other - Past Surgical History Surgical History: other Additional surgical history: back surgery. - Social History Smoking Status: Never smoker Smokeless Tobacco Status: No Alcohol use: none Drug use: none - Family History Mother History Unknown: Yes Medications and Allergies Aspirin 81 mg PO HS 03/23/16 [History] Calcium Carbonate/Vitamin D3 [Calcium 600-Vit D3 400 Tablet] 1 tab PO BID 03/23/16 [History] Chlorophyllin/[place] [Chlorophyll 20 mg Tablet] 100 mg PO BID 03/23/16 [History] Glucosamine Sulfate Dipot Chlr [Glucosamine] 1,000 mg PO BID 03/23/16 [History] [place]-3/Dha/Epa/Fish Oil [Fish Oil 1,000 mg Softgel] 1 cap PO DAILY 03/23/16 [History] Omeprazole [PriLOSEC] 40 mg PO DAILY 03/23/16 [History] Simvastatin [Zocor] 20 mg PO HS 03/23/16 [History] Torsemide 10 mg PO DAILY 03/23/16 [History] Citalopram Hydrobromide [Citalopram HBr] 10 mg PO HS 10/08/18 [History] Gabapentin [Neurontin] 900 mg PO HS 10/08/18 [History] Menthol/Zinc Oxide [Calmoseptine Ointment Packet] 1 appl TP HS 10/08/18 [History] Wheat Dextrin [Benefiber] 10 ml PO DAILY 10/08/18 [History] Allergy/AdvReac Type Severity Reaction Status Date / Time levetiracetam [From [facility]] Allergy See Verified 10/08/18 18:25 Comments ROS unobtainable: due to mental status All Systems: The remainder of the systems were reviewed and are negative Physical Examination - Vital Signs Vital Signs: Initial Vital Signs Temp Pulse Resp BP Pulse Ox 97 F L 62 14 127/98 97 10/08/18 11:58 10/08/18 11:58 10/08/18 11:58 10/08/18 11:58 10/08/18 11:58 - Constitutional General appearance: comfortable - Neurologic Sensorimotor examination: intact Detailed motor examination: grossly full strength in all extremities, full strength in all major muscle groups Motor examination - right side: 5/5: deltoids, biceps, triceps, wrist flexion, wrist extension, mechanical sound technician, hip flexors, tibialis Anterior, quadriceps, toe extension (EHL), plantarflexion Motor examination - left side: 5/5: deltoids, biceps, triceps, wrist flexion, wrist extension, hip flexors, mechanical sound technician, quadriceps, tibialis Anterior, toe extension (EHL), plantarflexion Detailed sensory examination: intact Reflex and gait examination: other (gait not assessed) Reflexes: Biceps: 2+, Triceps: 2+, Brachioradialis: 2+, Patella: 2+ Mental Status Examination: awake, alert, oriented to person, oriented to place (unable to assess), oriented to time (unable to assess), answers questions appropriately (unable to assess), no agnosia (unable to assess), no aphasia (unable to assess), no aproxia, opens eyes to voice, makes eye contact, follows simple commands Cranial nerve examination: PERRL, EOMI, corneal reflexes brisk symmetrically, sensory to face intact, no facial asymmetry is present, flexes SCM and trapezius muscles symmetrically with full power Results - Laboratory Findings CBC and BMP: 10/09/18 04:00 10/09/18 04:00 Abnormal lab findings: Abnormal lab results VBG pO2 109 mmHg (25-50) H 10/08/18 13:44 AST 51 Units/L (13-39) H 10/08/18 12:53 4.0 g/dL (2.4-3.5) H 10/08/18 12:53 0.9 (1.1-2.2) L 10/08/18 12:53 Cloudy (Clear) A 10/08/18 13:10 Positive (Negative) A 10/08/18 13:10 Ur Leukocyte Esterase Moderate (Negative) H 10/08/18 13:10 50-100 per hpf (0-3) H 10/08/18 13:10 Many per hpf (None-Few) H 10/08/18 13:10 Ur Culture Indicated? YES (NO) A 10/08/18 13:10 Consult Discharge Plan - Plan Referrals: NONE,PCP [Primary Care Provider] -
[2018-10-09] MEDS: (Glucosamine Sulfate Dipot Chlr [Glucosamine] 1,000 MG) PO SCH ×2 (11:03→21:08)
[2018-10-09] MEDS: Torsemide 20 MG TABLET PO SCH (11:03)
[2018-10-09] MEDS: Cholecalciferol (D-3) 1,000 UNIT TABLET PO SCH (11:03)
[2018-10-09] MEDS: cefTRIAXone 1,000 MG in Water for inj. (sterile) 20 ML 10 ML IVP SCH (11:04)
--- NOTE | 2018-10-09 12:19 | EEG/EMG/Oth Biometrics Report ---
EEG Procedure Report Date of procedure: 10/09/18 EEG Procedure: Routine EEG Procedure Note: Report: This EEG was acquired with standard international 10-20 electrode placement system with EKG recording. The background activity during this EEG was characterized by presence of alpha, theta and delta activity with best frequency up to 7.5 Hz. The background activity was reactive to eye openings and movements. Sleep stages were not identified during this tracing. There are no electrographic seizures identified during this tracing. There are no epileptiform discharged noted during this tracing. No focal slowing identified. Photic stimulation produced no abnormalities. HV not performed during this study. EKG tracing showed no significant cardiac dysarrhythmia. Impression: This is an abnormal EEG due to presence of mild diffuse background slowing. Clinical Correlation: This EEG is consistent with mild diffuse cerebral dysfunction that can be seen in patients with mild encephalopathy, metabolic/toxic, inflammatory, electrolyte derangement or anoxic/ischemic. Clinical correlation suggested.
--- NOTE | 2018-10-09 13:20 | Internal Med Progress Note ---
Hospitalist Progress Note - Encounter Date of Encounter: 10/09/18 Time of Encounter: 13:16 - Subjective Interval History: Ms. Smith is a 63-year-old female with past medical history significant for Peripheral neuropathy, HLD, developmental delay and seizures approximately 15 years ago currently not on any seizure medications pt was brought into ER from [facility] due to seizure-like movements and altered mental status. Apparently while patient was at [facility] she was described as having upper extremity shaking with confusion so patient was brought into the hospital for further evaluation. In the ER, CT of the head was negative for any acute findings but urinalysis positive for pyuria and patient with a one dose of IV ceftriaxone. She was admitted in the hospital and placed her on seizure precautions. She does not have any more seizure activity. She is more alert,awake and Oriented to self only.. Still looks confused, weak and lethargic. - Exam Vitals: Temp Pulse Resp BP Pulse Ox 97.9 F 71 16 135/83 92 10/09/18 12:25 10/09/18 12:25 10/09/18 12:25 10/09/18 12:25 10/09/18 12:25 Exam: Gen: Alert, awake, Oriented to self.. Looks confused, weak and lethargic Chest: Diminished breath sounds B/L, No wheezing, No crackles, No rales Heart: S1S2+ RRR No murmurs Abd: Soft, NT, BS +, No organomegaly Ext: No edema, pulses are palpable, No calf tenderness Neuro : Unable to perform through neurological exam due to her confusion Skin: No rash. - Assessment and Plan (1) Altered mental status, unspecified Current Visit: Yes Status: Acute Assessment and Plan: She does have acute toxic encephalopathy with UTI still confused Will start her on Haldol PRN for agitation cont symptomatic and supportive care Patient does need to stay in the hospital more than 2 midnights due to her complex medical problems. So we will change her to full admission today. I did review my colleague Dr. Hodge's H & P including HPI, PMH, PSH, FH, SH, and ROS no changes noticed (2) Witnessed seizure-like activity Current Visit: Yes Status: Acute Assessment and Plan: CT of the head was negative for any acute findings Reviewed EEG showed - Toxic encephalopathy changes due to UTI. May not need any anti convulsants at this point Appreciate Neuro recommendations (3) UTI (urinary tract infection) Current Visit: Yes Status: Acute Assessment and Plan: UA - is abnormal Urine cx - G-ve rods Cont IV Abx Rocephin (4) DVT prophylaxis Current Visit: Yes Status: Acute Assessment and Plan: Heparin subcutaneous (5) HLD (hyperlipidemia) Current Visit: Yes Status: Chronic Assessment and Plan: resumed home meds (6) Developmental delay, moderate Current Visit: Yes Status: Acute Assessment and Plan: resumed all home behavioral meds fall precautions - Time Spent with Patient Total time spent is greater than 50% in coordination of care (as documented) at patient's floor/unit and/or counseling patient: Internal Medicine: Result - Labs CBC & Chem 7: 10/09/18 04:00 10/09/18 04:00 Labs: Short CBC 10/08/18 10/09/18 Range/Units 12:53 04:00 WBC 5.3 5.1 (4.3-11.1) K/mcL Hgb 14.2 12.9 (11.5-15.4) g/dL Hct 41.9 37.8 (35.3-44.9) % Plt Count 248 200 (140-400) K/mcL Neutrophils # 2.3 2.4 (1.6-8.9) K/mcL BMP 10/08/18 10/09/18 12:53 04:00 Sodium 138 138 Potassium 4.1 3.9 Chloride 105 105 Carbon Dioxide 28 27 BUN 15 12 Creatinine 0.64 0.64 Glucose 79 90 Calcium 9.4 8.7 Cardiac Enzymes 10/08/18 Range/Units 12:53 Troponin I < 0.03 (< 0.04) ng/mL Liver Function 10/08/18 Range/Units 12:53 Total Bilirubin 0.4 (0.3-1.0) mg/dL Direct Bilirubin 0.1 (0.0-0.2) mg/dL AST 51 H (13-39) Units/L ALT 38 (7-52) Units/L Alkaline Phosphatase 77 (34-104) Units/L Albumin 3.7 (3.5-5.7) g/dL Urine 10/08/18 Range/Units 13:10 Urine Color Yellow (Yellow) Urine Clarity Cloudy A (Clear) Urine pH 5.5 (5.0-8.0) pH Units Ur Specific [place] 1.020 (1.010-1.025) Urine Protein Negative (Neg-Trace) mg/dL Urine Glucose (UA) Normal (Normal) mg/dL - Impressions Impressions Knee X-Ray 10/08/18 12:40 IMPRESSION: Moderate tricompartmental degenerative changes with a 17 mm loose body anteriorly. No acute osseous abnormality. D/ / 10/08/2018 13:32:34 Pamela Boggs MD / rahat Interpreting Provider: Pamela Boggs MD Consult Discharge Plan - Plan Referrals: NONE,PCP [Primary Care Provider] - (1) Altered mental status, unspecified Qualifiers: Altered mental status type: unspecified Qualified Code(s): R41.82 - Altered mental status, unspecified (3) UTI (urinary tract infection) Qualifiers: Urinary tract infection type: site unspecified Hematuria presence: without hematuria Qualified Code(s): N39.0 - Urinary tract infection, site not specified (5) HLD (hyperlipidemia) Qualifiers: Hyperlipidemia type: unspecified Qualified Code(s): E78.5 - Hyperlipidemia, unspecified
--- NOTE | 2018-10-09 15:56 | Electrocardiograph Report ---
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
[2018-10-09] MEDS ORDERED: Aspirin 81 MG TAB.CHEW PO SCH (21:00)
[2018-10-09] MEDS ORDERED: ZINC OXIDE TP SCH (21:00)
[2018-10-09] MEDS ORDERED: Gabapentin 300 MG CAPSULE PO SCH (21:00)
[2018-10-09] MEDS ORDERED: MENTHOL TP SCH (21:00)
[2018-10-10] MEDS: *HR* Heparin 5,000 UNIT/ML VIAL SQ SCH (05:26)
[2018-10-10] MEDS: Cholecalciferol (D-3) 1,000 UNIT TABLET PO SCH (09:25)
[2018-10-10] MEDS: Torsemide 20 MG TABLET PO SCH (09:25)
[2018-10-10] MEDS: cefTRIAXone 1,000 MG in Water for inj. (sterile) 20 ML 10 ML IVP SCH (09:26)
[2018-10-10] MEDS: (Glucosamine Sulfate Dipot Chlr [Glucosamine] 1,000 MG) PO SCH (09:27)
[2018-10-10 12:17] VITALS: BP 104/69
--- NOTE | 2018-10-10 12:52 | Discharge Summary ---
- NOTES TO OUTPATIENT PROVIDER Notes to Outpatient Provider: f/u with PCP in one week. Date of Encounter: 10/10/18 Time of Encounter: 12:46 - Discharge Diagnosis (1) UTI (urinary tract infection) Priority: Primary Status: Acute Qualifiers: Urinary tract infection type: site unspecified Hematuria presence: without hematuria Qualified Code(s): N39.0 - Urinary tract infection, site not specified (2) Altered mental status, unspecified Priority: Primary Status: Acute Qualifiers: Altered mental status type: unspecified Qualified Code(s): R41.82 - Altered mental status, unspecified (3) Witnessed seizure-like activity Priority: Primary Status: Acute (4) HLD (hyperlipidemia) Priority: Secondary Status: Chronic Qualifiers: Hyperlipidemia type: unspecified Qualified Code(s): E78.5 - Hyperlipidemia, unspecified (5) Developmental delay, moderate Priority: Secondary Status: Acute (6) DVT prophylaxis Priority: Secondary Status: Acute Hospital course: Ms. Smith is a 63-year-old female with past medical history significant for Peripheral neuropathy, HLD, developmental delay and seizures approximately 15 years ago currently not on any seizure medications pt was [facility] ER from [facility] due to seizure-like movements and altered mental status. Apparently while patient was at adult daycare she was described as having upper extremity shaking with confusion so patient was brought into the hospital for further evaluation. In the ER, CT of the head was negative for any acute findings but urinalysis positive for pyuria and patient with a one dose of IV ceftriaxone. She was admitted in the hospital and placed her on seizure precautions. She does not have any more seizure activity. She is more alert,awake and Oriented to self. Her EEG came back as normal read other than some toxic encephalopathy c hanges due to UTI. She was started on IV Rocephin. Her symptoms improved now. Neurology did not recommend any anti epileptic medication now since she was seizure free for 14 yrs and now she had an event mostly triggered by UTI, for now we can monitor with no medication. So will d/c her home in stable condition today with PO Abx Omnicef. - Time Spent with Patient Total time spent providing and/or coordinating discharge services: - Discharge Medications Prescriptions: New Cefdinir [Omnicef] 300 mg PO BID #8 capsule Continued [place]-3/Dha/Epa/Fish Oil [Fish Oil 1,000 mg Softgel] 1 cap PO DAILY Calcium Carbonate/Vitamin D3 [Calcium 600-Vit D3 400 Tablet] 1 tab PO BID Aspirin 81 mg PO HS Omeprazole [PriLOSEC] 40 mg PO DAILY Chlorophyllin/[place] [Chlorophyll 20 mg Tablet] 100 mg PO BID Torsemide 10 mg PO DAILY Simvastatin [Zocor] 20 mg PO HS Glucosamine Sulfate Dipot Chlr [Glucosamine] 1,000 mg PO BID Citalopram Hydrobromide [Citalopram HBr] 10 mg PO HS Gabapentin [Neurontin] 900 mg PO HS Menthol/Zinc Oxide [Calmoseptine Ointment Packet] 1 appl TP HS Wheat Dextrin [Benefiber] 10 ml PO DAILY Home Medications: Aspirin 81 mg PO HS 03/23/16 [History] Calcium Carbonate/Vitamin D3 [Calcium 600-Vit D3 400 Tablet] 1 tab PO BID 03/23/16 [History] Chlorophyllin/[place] [Chlorophyll 20 mg Tablet] 100 mg PO BID 03/23/16 [History] Glucosamine Sulfate Dipot Chlr [Glucosamine] 1,000 mg PO BID 03/23/16 [History] [place]-3/Dha/Epa/Fish Oil [Fish Oil 1,000 mg Softgel] 1 cap PO DAILY 03/23/16 [History] Omeprazole [PriLOSEC] 40 mg PO DAILY 03/23/16 [History] Simvastatin [Zocor] 20 mg PO HS 03/23/16 [History] Torsemide 10 mg PO DAILY 03/23/16 [History] Citalopram Hydrobromide [Citalopram HBr] 10 mg PO HS 10/08/18 [History] Gabapentin [Neurontin] 900 mg PO HS 10/08/18 [History] Menthol/Zinc Oxide [Calmoseptine Ointment Packet] 1 appl TP HS 10/08/18 [History] Wheat Dextrin [Benefiber] 10 ml PO DAILY 10/08/18 [History] Cefdinir [Omnicef] 300 mg PO BID #8 capsule 10/10/18 [Rx] Allergies/Adverse Reactions: Allergy/AdvReac Type Severity Reaction Status Date / Time levetiracetam [From [facility]] Allergy See Verified 10/08/18 18:25 Comments Date of admission: 10/09/18 13:14 Primary care physician: PCP NONE Consults: 10/08/18 14:01 Consult to Invasive Line Access Team [CONS] Routine Reason for Consult: limited access Line Type: EPIV 10/08/18 17:18 Consult to Neurology [CONS] Routine Consulting Provider: [facility] Reason for Consult: Seizure-like activity Call Completed: No 10/09/18 11:19 Consult to Interpret Exam [CONS] Routine Consulting Provider: Fe Morales Consult to Interpret Exam: Interpret EEG - Constitutional Vitals: Temp Pulse Resp BP Pulse Ox 98.1 F 67 14 104/69 92 10/10/18 12:10 10/10/18 12:10 10/10/18 12:10 10/10/18 12:10 10/10/18 12:10 General appearance: Present: cooperative, A&O X 1, no acute distress Exam: Gen: Alert, awake, Oriented to self. Chest: Diminished breath sounds B/L, No wheezing, No crackles, No rales Heart: S1S2+ RRR No murmurs Abd: Soft, NT, BS +, No organomegaly Ext: No edema, pulses are palpable, No calf tenderness Neuro: mentation neal at baseline. Skin: No rash. - Patient Status Disposition: Home, Self-Care Condition: Good Overall status at discharge: patient is back to baseline - Discharge Instructions Follow Up With: NONE,PCP [Primary Care Provider] - Fe Morales MD [Partnered Physician] - - Diet and Activity Activity: increase activity as tolerated Diet: low salt diet
== END 2018-10-10 15:30 | disposition home or self-care (01) | DRG 100 ==
LOC: EMEROOARM 11:55 → 3BNU 11:55 → SUATTDRO 15:17 → 3BNU 18:32
PROVIDERS: ADMIT Internal Medicine Nephrology; ATTEND Family Medicine